=== PATIENT | male | born 1990 | race Caucasian/White ===

== ENCOUNTER 2016-05-04 00:39 | Emergency (ER) | payer OTHER ==
[~2016-05-04] VITALS: Ht 185.4 cm; Wt 68.2 kg
[~2016-05-04 00:39] MED LIST: FLEXERIL10 MG PO; MOTRIN600 MG PO; NAPROSYN500 MG PO; SOMA350 MG PO; TRAMADOL HCL50 MG PO; ULTRAM50 MG PO
[2016-05-04 01:52] LABS: EOSINOPHIL (%) 0.3 % (0-5); HEMATOCRIT 38.1 % (38.0-50.0); IMMATURE GRANULOCYTE (%) 0.1 % (0.0-0.7); IMMATURE GRANULOCYTE COUNT 0.1 K/uL; LYMPHOCYTE COUNT 1.3 K/uL (1.0-2.8); MCH 30.3 PG (29.0-34.0); MCHC 33.9 G/DL (30.0-36.0); MCV 89.4 FL (86-99); MEAN PLAT.VOLUME 9.6 uM^3 (9.0-12.4); MONOCYTE (%) 7.3 % (3-12); MONOCYTE COUNT 0.8 K/uL (0-0.8); NEUTROPHIL (%) 79.6 % (45-76); NEUTROPHIL COUNT 8.5 K/uL (1.8-6.4); PLATELET COUNT 193 K/uL (156-360); RBC DIS.WIDTH-CV 12.7 % (11.8-14.6); RED BLOOD COUNT 4.26 M/uL (4.00-5.50); WHITE BLOOD COUNT 10.7 K/uL (4.1-10.2)
[2016-05-04 02:02] LABS: CHLORIDE 108 mEq/L (99-109); POTASSIUM 3.6 mEq/L (3.7-5.4); SODIUM 146 mEq/L (136-147)
[2016-05-04 02:03] LABS: GLUCOSE 97 mg/dL (70-99)
[2016-05-04 02:05] LABS: ANION GAP 13 MEQ/L (2-14)
[2016-05-04 02:07] LABS: GFR ESTIMATE (CALCULATED) > 59 mL/min/
[2016-05-04 02:08] LABS: UREA NITROGEN (BUN) 16 mg/dL (9-23)
[2016-05-04] MEDS ORDERED: NARCAN4 MG NS (03:11)
[2016-05-04 03:30] VITALS: BP 128/91
== END 2016-05-04 03:30 | disposition home or self-care (01) ==
LOC: EME 00:39
PROVIDERS: Emergency Medicine
DX: T40.2X1A Poisoning by other opioids, accidental (unintentional), initial encounter (principal); R00.0 Tachycardia, unspecified; F17.200 Nicotine dependence, unspecified, uncomplicated
CPT/HCPCS: 80048; 85025; 99281; 99284; G0480; J7030